=== PATIENT | male | born 1980 | race Caucasian/White ===

== ENCOUNTER 2016-06-20 08:35 | Observation (INO) | payer OTHER ==
[2016-05-26 09:41] LABS: BASO % 1.2 %; COMPLETE YES; EOS % 3.1 %; HEMATOCRIT 44.2 % (42-52); IG% 0.4 %; LYMPH % 30.3 %; LYMPH ABS # 2.57 K/uL (1.2-3.4); MEAN CELL VOLUME 85.5 fL (80-100); MEAN CORPUSCULAR HEMOGLOBIN 30.2 pg (25-34); MEAN CORPUSCULAR HGB CONC 35.3 g/dl (32-36); MEAN PLATELET VOLUME 10.7 fL (7.4-10.4); MONO % 10.4 %; NEUT % 54.6 %; PLATELET COUNT 286 K/uL (130-400); RED BLOOD COUNT 5.17 M/uL (4.7-6.1); WHITE BLOOD COUNT 8.48 K/uL (4.8-10.8)
--- NOTE | 2016-06-17 11:13 | HISTORY & PHYSICAL EXAMINATION ---
DATE OF ADMISSION: 06/20/2016 SUBJECTIVE CHIEF COMPLAINT: Presents with back and right lower extremity difficulty. HISTORY OF PRESENT ILLNESS: Lux is a very pleasant 36-year-old male who has been complaining of low back pain with right leg radiculopathy type symptoms for quite a while now. He has tried conservative care up to this point including epidural steroid injections, medications, tried some physical therapy and exercise. The duration of the symptoms have been 9-10 months in duration. He feels as though he needs surgical fix to this problem. PAST MEDICAL HISTORY: Positive for hyperlipidemia and positive for asthma. PAST SURGICAL HISTORY: Includes appendectomy and labral repair in his right shoulder. ALLERGIES: No allergies to medications. CURRENT MEDICATIONS: Include Advair, Singulair, Combivent, Effexor, Lipitor, Zyrtec. FAMILY MEDICAL HISTORY: Negative for heart disease, stroke, diabetes, blood clots, DVTs or cancer. SOCIAL HISTORY: He is . Drinks 1-2 alcoholic drinks a day. No tobacco use. Moderately active lifestyle. REVIEW OF SYSTEMS: RESPIRATORY: Positive for asthma. NEUROLOGICAL: Positive for numbness and tingling. MUSCULOSKELETAL: Positive for joint pain. PHYSICAL EXAMINATION: CONSTITUTIONAL: Alert and oriented x3. He is in moderate amount of distress. VITAL SIGNS: He is 5 foot 9, 203 pounds. CARDIOVASCULAR: Brisk capillary refill in distal extremities. RESPIRATORY: Equal bilateral breath sounds upon auscultation. GASTROINTESTINAL: Abdomen is soft, nontender. No signs of any organomegaly. INTEGUMENTARY: No skin rashes, no lesions, no swelling or redness or warmth. MUSCULOSKELETAL EXAMINATION: His Achilles reflex is normal. His knee jerk reflexes are normal as well. He has got no upper motor neuron issues. He does have decreased range of motion in both flexion and extension of his lumbar spine. He does have pain with percussion throughout the L5-S1 lumbar segments. He does have mild pain with straight leg raises on the left side. DIAGNOSTIC STUDIES: X-rays as well as an MRI was reviewed. Does have a pretty significant disc herniation impinging upon the right neural foramen at the L5-S1 levels. ASSESSMENT DIAGNOSIS: Disc herniation, lumbar spine. PLAN: At this time, we did offer surgical intervention with difficulty. We are planning on doing a discectomy at L5-S1. We discussed the surgical procedure in detail and he does to move forward. We discussed the benefits and the risk with him and he fully understands. We discussed the postoperative expectations and time frames as well. We did provide him with pain medication prior to surgery for his postop analgesics. Plan on him being in the hospital most likely 1 night, possibly 2 nights. He is scheduled and posted for the discectomy lumbar L5-S1 on Monday06/20/2016.
[2016-06-20] VITALS (8 sets, daily range): BP systolic 113–144; BP diastolic 59–86; PULSE 82–114; TEMP 36.4–36.8; O2SAT 94–98; Ht 175.3 cm; Wt 93.0 kg
[~2016-06-20] VITALS: Ht 175.3 cm; Wt 93.0 kg
[~2016-06-20 08:35] MED LIST: ADVIN25/60 INH; BACL10TA PO; CEFAZOLIN 2000 MG/60 ML D5W 60 ML IV SCH; CMBIN INH; EFFSR150 PO; FENTANYL CITRATE INJ 50 MCG/1 ML 2 ML VIAL ONE; GLYCOPYRROLATE INJ 0.2 MG/ML VIAL ONE; IBUP-1427 PO; LACTATED RINGER'S 1000ML 500 ML IV ONE; LIDOCAINE HCL 2% 2 ML VIAL (20MG/ML) ONE; LORA-741 PO; LPT/40 PO; MIDAZOLAM HCL 1 MG/ML 2ML VIAL ONE; MONT1TAB3 PO; NEOSTIGMINE METHYLSULFATE 5 MG/5 ML SYR ONE; NSS 1000ML IV SCH; ONDANSETRON INJ 2 MG/ML 2 ML VIAL ONE; PATIENT'S HEIGHT AND/OR WEIGHT NEEDED SCH; PRED20TA PO; PROPOFOL IV EMULSION 10 MG/ML 20 ML VIAL IV ONE; ROCURONIUM BROMIDE 10 MG/ML 5 ML VIAL ONE
--- NOTE | 2016-06-20 10:30 | History & Physical Bridge Note ---
H&P Re-Evaluation Bridge Note: I have examined the patient, reviewed the History & Physical and in the interval since the performance of the History & Physical I have noted the following changes of clinical significance: No changes noted
[2016-06-20] MEDS ORDERED: LABETALOL HCL IV 5 MG/ML 20ML IV PRN (11:15)
[2016-06-20] MEDS ORDERED: ATROPINE SULFATE 0.1 MG/ML 5ML SYR IV PRN (11:15)
[2016-06-20] MEDS ORDERED: ONDANSETRON INJ 2 MG/ML 2 ML VIAL IV PRN ×2 (11:15→12:15)
[2016-06-20] MEDS ORDERED: FENTANYL CITRATE INJ 50 MCG/1 ML 2 ML VIAL ONE (11:44)
[2016-06-20] MEDS ORDERED: THROMBIN FOR SOLN 20000 UNIT KIT TOP ONE (12:04)
[2016-06-20] MEDS ORDERED: GELATIN SPONGE SZ 100 TOP ONE (12:04)
[2016-06-20] MEDS ORDERED: BUPIVACAINE/EPINEPHRINE 0.5% MPF 1:200,000 30 ML VIAL INJ ONE (12:04)
[2016-06-20] MEDS ORDERED: VANCOMYCIN HCL 1000MG/20ML VIAL TOP ONE (12:04)
[2016-06-20] MEDS ORDERED: BACITRACIN 50000 UNIT VIAL IR ONE (12:04)
[2016-06-20] MEDS ORDERED: HYDROmorphone INJ 2 MG/ML SYR/VIAL IV PRN (12:15)
[2016-06-20] MEDS ORDERED: OXYCODONE/ACETAMINOPHEN 5-325 TAB PO PRN (12:15)
[2016-06-20] MEDS ORDERED: PROMETHAZINE HCL INJ 12.5 MG in SODIUM CHLORIDE 0.9% 50ML 50 ML IV PRN (12:15)
[2016-06-20] MEDS ORDERED: LORAZEPAM 1 MG TAB PO PRN (12:15)
[2016-06-20] MEDS ORDERED: LORAZEPAM 0.5 MG TAB PO SCH (12:15)
[2016-06-20] MEDS ORDERED: ACETAMINOPHEN 325 MG TAB PO PRN (12:15)
[2016-06-20] MEDS ORDERED: BACLOFEN 10 MG TAB PO PRN (12:15)
[2016-06-20] MEDS ORDERED: LORAZEPAM INJ 1 MG in SYRINGE 0 ML IV PRN (12:15)
[2016-06-20] MEDS ORDERED: METOCLOPRAMIDE HCL INJ 5 MG/ML 2 ML VIAL IV PRN (12:15)
[2016-06-20] MEDS ORDERED: MAGNESIUM HYDROXIDE SUSP 30 ML UDC PO PRN (12:15)
[2016-06-20] MEDS ORDERED: IPRATROPIUM BROMIDE/ALBUTEROL respimat INH INH PRN (12:15)
[2016-06-20] MEDS: HYDROmorphone INJ 2 MG/ML SYR/VIAL IV PRN ×5 (12:20→12:40)
--- NOTE | 2016-06-20 12:20 | [facility] Post Operative Brief Note ---
Immediate Operative Summary Operative Date Jun 20, 2016. Pre-Operative Diagnosis Disc Herniation L5-S1 Post-Operative Diagnosis Disc Herniation L5-S1 Procedure(s) Performed L5-S1 Discectomy Surgeon Dr. Tsai Ring Cutter Lathe Operator Surgeon(s) ALFONSO Cervantes Estimated Blood Loss 50 ml Findings discherniation Specimens none per surgeon Complication(s) None Disposition Recovery Room / PACU
--- NOTE | 2016-06-20 12:38 | OPERATIVE REPORT ---
DATE OF OPERATION: 06/20/2016 PREOPERATIVE DIAGNOSIS: Disc herniation, lumbar spine 5-S1. POSTOPERATIVE DIAGNOSIS: Same. PROCEDURE: Included a discectomy 5-S1 lumbar. SURGEON: Dr. Tsai. ANTENNA SPECIALIST: ALFONSO Cervantes. COMPLICATIONS: Zero. BLOOD LOSS: 50 mL. The patient was taken to the operating room, a general intubated anesthetic provided to the patient. Placed prone, scrubbed, prepped and draped sterile. We used C-arm guidance to get to the right interval. He was prepped and draped sterile. We made a skin incision, fascial incision. Using C-arm guidance we came down at 5-S1. Did a laminotomy on the right hand side. We preserved the laminotomy on the right hand side. Did a foraminotomy, partial facetectomy. It was difficult getting off the ligamentum flavum, it was scarred in pretty significantly. We finally got through the ligamentum flavum. We got out lateral to the nerve root. We found the nerve root, saw the nerve root. Retracted this medially on the right hand side. We used a 15 scalpel blade, various sized pituitary rongeurs to evacuate the disc herniation at 5- S1. We completed and accentuated the foraminotomy. We did not destabilize the patient. There was no apparent injury to nerve or dura. We irrigated thoroughly. Closed over Hemovac drain with 1 Vicryl suture, 2-0 and 3-0 nylon on the skin. Sterile dressing applied. The patient returned to PACU stable. There were no apparent complications. Sponge and needle count correct. We also used vancomycin in the wound with the Hemovac drain. I attest to the content of the Intraoperative Record and any orders documented therein. Any exceptions are noted below. MTDD
--- NOTE | 2016-06-20 13:07 | Anesthesiology Progress Note ---
Anesthesia Post Op Note Date & Time Jun 20, 2016 at 13:06 Vital Signs Pain Intensity: 3 Vital Signs Past 12 Hours Date Time Temp Pulse Resp B/P Pulse Ox O2 Delivery O2 Flow Rate FiO2 06/20/16 12:55 86 20 140/83 97 Nasal Cannula 2 06/20/16 12:45 90 14 129/80 99 Nasal Cannula 2 06/20/16 12:35 87 23 145/74 98 Nasal Cannula 2 06/20/16 12:25 91 17 140/75 95 Nasal Cannula 2 06/20/16 12:17 36.4 102 12 139/88 94 Nasal Cannula 2 06/20/16 08:52 36.4 82 20 135/86 97 Room Air Notes Mental Status: alert / awake / arousable, participated in evaluation Pt Amnestic to Procedure: Yes Nausea / Vomiting: adequately controlled Pain: adequately controlled Airway Patency, RR, SpO2: stable & adequate BP & HR: stable & adequate Hydration State: stable & adequate Anesthetic Complications: no major complications apparent
[2016-06-20] MEDS: SODIUM CHLORIDE 0.9% 1000ML 1,000 ML IV SCH (13:33)
[2016-06-20] MEDS: OXYCODONE/ACETAMINOPHEN 5-325 TAB PO PRN (14:08)
[2016-06-20] MEDS ORDERED: IV FLUIDS COMPLETED PRN (15:15)
[2016-06-20] MEDS: KETOROLAC TROMETHAMINE 30 MG/ML VIAL IV. SCH ×2 (16:10→21:37)
[2016-06-20 16:23] LABS: CREATININE 1.1 mg/dl (0.60-1.40)
[2016-06-20] MEDS: HYDROmorphone INJ 1 MG/ML SYR IV PRN ×2 (16:37→21:14)
[2016-06-20] MEDS: CEFAZOLIN IV 2,000 MG in DEXTROSE 5% 50ML 50 ML IV SCH (17:32)
[2016-06-20] MEDS ORDERED: DEXAMETHASONE INJ 10 MG in SYRINGE 0 ML IV SCH (18:00)
[2016-06-20] MEDS ORDERED: MONTELUKAST SOD 10 MG TAB PO SCH (21:00)
[2016-06-20] MEDS: FLUTICASONE/SALMETEROL 250/50 (ADVAIR) 14 PUFF/1 INHALER INH SCH (21:12)
[2016-06-21] MEDS: HYDROmorphone INJ 1 MG/ML SYR IV PRN ×4 (00:06→09:17)
[2016-06-21] MEDS: SODIUM CHLORIDE 0.9% 1000ML 1,000 ML IV SCH (00:07)
[2016-06-21 03:25] VITALS: BP 115/75; PULSE 84; TEMP 36.9; O2SAT 97
[2016-06-21] MEDS: KETOROLAC TROMETHAMINE 30 MG/ML VIAL IV. SCH ×2 (03:25→09:17)
[2016-06-21] MEDS: CEFAZOLIN IV 2,000 MG in DEXTROSE 5% 50ML 50 ML IV SCH ×2 (03:25→09:16)
[2016-06-21] MEDS ORDERED: BISACODYL 5 MG TABEC PO PRN (06:00)
[2016-06-21] MEDS ORDERED: BISACODYL 10 MG SUPP PR PRN (06:00)
--- NOTE | 2016-06-21 07:20 | DIAGNOSTIC IMAGING REPORT ---
INTRAOPERATIVE RADIOGRAPH CLINICAL HISTORY: L5-S1 discectomy. Fluoroscopy time: 5 seconds. FINDINGS: A single spot fluoroscopic view of the lumbar spine are presented. A surgical probe projects at the L5-S1 disc space. IMPRESSION: Intraoperative image from L5 to S1 discectomy as above. Electronically signed by: Manjeet Posey M.D. 06/20/2016 12:04 PM Dictated Date/Time: 06/20/2016 12:03 PM
--- NOTE | 2016-06-21 07:27 | Discharge Instructions ---
Discharge Instructions Admission Reason for Admission: Disc Herniation L5-S1 Discharge Discharge Diagnosis / Problem: disc herniation Discharge Goals Goal(s): Improve function Activity Recommendations Activity Limitations: as noted below Lifting Limitations: until after follow-up appointment Exercise/Sports Limitations: until after follow-up appointment May Resume Sexual Activity: after follow-up appointment Shower/Bathe: keep incision dry Driving or Machine Use: be careful . Current Hospital Diet Patient's current hospital diet: Regular Diet Discharge Diet Recommended Diet: Regular Diet Fluid Restriction: None Procedures Procedures Performed: L5-S1 Discectomy Pending Studies Studies pending at discharge: no Laboratory Results Lipid Panel Test 03/30/16 00:00 Range/Units Triglycerides Level 132 0-150 mg/dl Cholesterol Level 164 0-200 mg/dl HDL Cholesterol 48 mg/dl Cholesterol/HDL Ratio 3.4 LDL Cholesterol, Calculated 90 mg/dl Medical Emergencies . Who to Call and When: Medical Emergencies: If at any time you feel your situation is an emergency, please call 911 immediately. . Non-Emergent Contact Non-Emergency issues call your: Surgeon Call Non-Emergent contact if: your pain is not controlled . "Provider Documentation" section prepared by Jordan Tsai. VTE Core Measure Inpt VTE Proph given/why not?: Treatment not indicated
[2016-06-21 07:30] VITALS: BP 124/78; PULSE 70; TEMP 37; O2SAT 96
[2016-06-21] MEDS: FLUTICASONE/SALMETEROL 250/50 (ADVAIR) 14 PUFF/1 INHALER INH SCH (08:42)
[2016-06-21] MEDS ORDERED: VENLAFAXINE HCL XR 150 MG CAPXR PO SCH (09:00)
[2016-06-21] MEDS ORDERED: POLYETHYLENE (MIRALAX) 17 GM PACK PO SCH (09:00)
[2016-06-21] MEDS ORDERED: ATORVASTATIN 40 MG TAB PO SCH (09:00)
--- NOTE | 2016-06-21 09:58 | Anesthesiology Progress Note ---
Anesthesia Post Op Note Date & Time Jun 21, 2016 at 09:57 Vital Signs Pain Intensity: 6.0 Vital Signs Past 12 Hours Date Time Temp Pulse Resp B/P Pulse Ox O2 Delivery O2 Flow Rate FiO2 06/21/16 07:50 Room Air 06/21/16 07:30 37.0 70 18 124/78 96 Room Air 06/21/16 03:25 36.9 84 16 115/75 97 Room Air 06/21/16 00:00 Room Air 06/20/16 23:00 36.8 88 16 124/76 96 Room Air Notes Mental Status: alert / awake / arousable, participated in evaluation Pt Amnestic to Procedure: Yes Nausea / Vomiting: adequately controlled Pain: adequately controlled Airway Patency, RR, SpO2: stable & adequate BP & HR: stable & adequate Hydration State: stable & adequate Anesthetic Complications: no major complications apparent Patient complains of sore throat following GETA.
[2016-06-21 10:33] VITALS: BP 124/78; PULSE 70; TEMP 37; O2SAT 96
[2016-06-21 11:05] VITALS: BP 123/72; PULSE 89; TEMP 36.4; O2SAT 96
[2016-06-21] MEDS: OXYCODONE/ACETAMINOPHEN 5-325 TAB PO PRN (12:44)
--- NOTE | 2016-06-24 11:52 | DISCHARGE SUMMARY ---
SUBJECTIVE: Minimal complaints of pain, no chest pain, shortness of breath. Mentation normal. OBJECTIVE: Vital signs stable. Wound clean, dry. ASSESSMENT: Status post lumbar spine surgery, stable. DISPOSITION: Includes discharge home in improved stable condition. Medication prescribed and on a prescription on his chart. Follow up prescription given as well and time to be in the office. Instructions, precautions given to the patient both by the hospital and by our service in the office.
== END 2016-06-21 13:34 | disposition home or self-care (01) ==
LOC: ENRESERVDT → ENRESERVTM → C.ACU 08:35 → C.3E 12:19
PROVIDERS: ADMIT Orthopaedic Surgery Orthopaedic Surgery of the Spine; ATTEND Orthopaedic Surgery Orthopaedic Surgery of the Spine
DX: M51.26 Other intervertebral disc displacement, lumbar region (principal); E78.5 Hyperlipidemia, unspecified; J45.909 Unspecified asthma, uncomplicated

== ENCOUNTER → 2017-01-28 | Outpatient (CLI) | payer OTHER ==
[~2017-01-28] MED LIST changes: -CEFAZOLIN 2000 MG/60 ML D5W 60 ML IV SCH; -FENTANYL CITRATE INJ 50 MCG/1 ML 2 ML VIAL ONE; -GLYCOPYRROLATE INJ 0.2 MG/ML VIAL ONE; -IBUP-1427 PO; -LACTATED RINGER'S 1000ML 500 ML IV ONE; -LIDOCAINE HCL 2% 2 ML VIAL (20MG/ML) ONE; -MIDAZOLAM HCL 1 MG/ML 2ML VIAL ONE; -NEOSTIGMINE METHYLSULFATE 5 MG/5 ML SYR ONE; -NSS 1000ML IV SCH; -ONDANSETRON INJ 2 MG/ML 2 ML VIAL ONE; -PATIENT'S HEIGHT AND/OR WEIGHT NEEDED SCH; -PROPOFOL IV EMULSION 10 MG/ML 20 ML VIAL IV ONE; -ROCURONIUM BROMIDE 10 MG/ML 5 ML VIAL ONE
[2017-01-28 09:33] LABS: CHOLESTEROL/HDL RATIO 5.1
== END | disposition home or self-care (01) ==
LOC: C.LAB 08:45
PROVIDERS: ATTEND Physician Assistant
DX: Z00.00 Encounter for general adult medical examination without abnormal findings (principal); Z13.6 Encounter for screening for cardiovascular disorders; Z13.1 Encounter for screening for diabetes mellitus